=== PATIENT | female | born 1950 | race Caucasian/White ===

== ENCOUNTER → 2016-06-27 | Outpatient (CLI) | payer BC ==
[~2016-06-27] MED LIST: ACET650T59 PO; AMLO5TAB66 PO; BUPIVACAINE ONE; DICY10CA48 PO; DIPH25CA84 PO; ESTR42.58 VG; FOLI0.4T52 PO; IOHEXOL 180 MG/ML 20ml INJECTION ONE; LIDOCAINE 1% (10mg/ml) 30ml SDV ONE; LOSA25TA34 PO; MethylPREDNISolone ACETATE 80mg/1ml ONE; OMEP20CA10 PO; P-EP-570 PO; SODIUM BICARBONATE IV ONE; TRIA16.56 NS; [UNRECOGNIZED DRUG - CODE] PO; [UNRECOGNIZED DRUG - CODE] PO
--- NOTE | 2016-06-30 10:42 | PROCEDUREF ---
DATE OF PROCEDURE June 27, 2016 PROCEDURE Right hip joint cortisone injection under fluoroscopy. PREOPERATIVE DIAGNOSIS Right hip osteoarthritis. POSTOPERATIVE DIAGNOSIS Right hip osteoarthritis. DESCRIPTION OF PROCEDURE After consent was obtained, the patient was prepped in a sterile fashion in the quality control lab technician. She was draped using standard protocol. After being careful to avoid the femoral artery, I did use 9 mL of 1% lidocaine and 1 mL of sodium bicarbonate to achieve skin anesthesia using a spinal 25-gauge needle. I then used 0.5 mL of contrast to confirm placement in the hip joint. This was all done under fluoroscopy. After successful needle placement in the hip joint was confirmed, I left the needle in place and changed the syringe, injecting 5 mL of 0.25% Marcaine and 2 mL of Depo-Medrol 40 mg/mL. The needle was then withdrawn and there were no complications. Good hemostasis was achieved. The patient tolerated this procedure well. FOLLOWUP The patient is to call my office to follow up at my clinic in one week. She will call sooner if any fever, redness, increased pain or other concerns. SANTIAGO
== END ==
LOC: CATH.INJ 09:59
PROVIDERS: ATTEND Family Medicine Sports Medicine
DX: M16.11 Unilateral primary osteoarthritis, right hip (principal)
CPT/HCPCS: 20610; 77002; J1040; Q9965; Q9967; S0020

== ENCOUNTER 2016-09-25 06:47 | Inpatient (IN) ==
[~2016-09-25 06:47] MED LIST changes: -ACET650T59 PO; +ACETAMINOPHEN 500 MG TABLET PO ONE; -AMLO5TAB66 PO; -BUPIVACAINE ONE; -DICY10CA48 PO; -DIPH25CA84 PO; -ESTR42.58 VG; +FAMOTIDINE PB 20 MG/50 ML BAG IV ONE; -FOLI0.4T52 PO; -IOHEXOL 180 MG/ML 20ml INJECTION ONE; +LIDOCAINE 1% (10mg/ml) 10mL MDV SQ ONE; -LIDOCAINE 1% (10mg/ml) 30ml SDV ONE; -LOSA25TA34 PO; +METOCLOPRAMIDE 10mg/2ml INJECTION IVP ONE; -MethylPREDNISolone ACETATE 80mg/1ml ONE; +NOZIN NASAL SWAB NAS ONE; +NS IV ONE; -OMEP20CA10 PO; +ONDANSETRON 4 MG/2 ML INJECTION IVP ONE; -P-EP-570 PO; -SODIUM BICARBONATE IV ONE; +TRANEXAMIC ACID 1,000 MG in NS 100 ML IV ONE; -TRIA16.56 NS; +VANCOMYCIN 1,000 MG INJECTION ONE; +VANCOMYCIN IV ONE; -[UNRECOGNIZED DRUG - CODE] PO; -[UNRECOGNIZED DRUG - CODE] PO
[2016-09-25] MEDS ORDERED: TRANEXAMIC ACID 1,000 MG in NS 100 ML IV ONE (07:00)
[2016-09-25 07:07] VITALS: BMI 28.5
[2016-09-25] MEDS: LR 1,000 ML IV SCH ×3 (07:30→12:04)
[2016-09-25] MEDS ORDERED: LIDOCAINE 1% (10mg/ml) 2mL INJ PF SDV ID ONE (07:45)
[2016-09-25 07:49] LABS: Eosinophils # (Auto) 0.1 T/MM3 (0-0.5); Eosinophils % (Auto) 1.4 % (0-4); Hemoglobin 11.2 GM/DL (12-16); Immature Granulocyte % (Auto) 0.2 % (0.0-0.5); Lymphocytes # (Auto) 1.1 T/MM3 (1-4.8); Lymphocytes % (Auto) 21.5 % (23-45); Mean Corpuscular Hemoglobin 30.6 UUG (26-34); Mean Corpuscular Volume 92.9 UM3 (80-100); Mean Platelet Volume 9.1 UM3 (9.4-12.4); Monocytes % (Auto) 8.5 % (0-9.0); Platelet Count 404 T/MM3 (130-400); RDW Standard Deviation 41.5 FL (36.9-50.2); Red Blood Count 3.66 M/MM3 (4.00-5.20); White Blood Count 5.2 T/MM3 (4.5-11.0)
[2016-09-25] MEDS ORDERED: EPINEPHrine 0.25 MG, BUPIVACAINE 0.25% PF 30 ML, MORPHINE SULFATE 15 MG, KETOROLAC INJ ... OPSITE ONE (08:00)
--- NOTE | 2016-09-25 08:16 | Anesthesia Preoperative Report ---
Anesthesia Preoperative Record - Date and Time Date: 09/25/16 Preoperative Diagnosis: DJD right hip Proposed Procedure: right total hip NPO Since Date: 09/24/16 NPO Since Time: 23:00 Allergies/Adverse Reactions: Allergies Allergy/AdvReac Type Severity Reaction Status Date / Time Penicillins Allergy Severe Hives Verified 09/25/16 07:17 amoxicillin [From Augmentin] Allergy Unknown paralysis Verified 09/25/16 07:15 to arm, swelling clavulanic acid Allergy Unknown paralysis Verified 09/25/16 07:15 [From Augmentin] to arm, swelling hydrocodone AdvReac Unknown N/V Verified 09/25/16 07:15 ampicillin trihydrate Allergy Severe Hives Uncoded 09/25/16 07:17 Erythromycin Lactobionate Allergy Severe Bronchospas Uncoded 09/25/16 07:17 m Pneumococcal 23-Eugenia P-Sac Vac Allergy Severe paralysis Uncoded 09/25/16 07:17 to arm, swelling clindamycin HCl Allergy Unknown Bronchospas Uncoded 09/25/16 07:17 m Clindamycin Palmitate Allergy Unknown Bronchospas Uncoded 09/25/16 07:17 m clindamycin phosphate Allergy Unknown Bronchospas Uncoded 09/25/16 07:18 m - Vital Signs Vital Signs: Temperature 97.8 F 09/25/16 07:06 Pulse Rate 82 09/25/16 07:34 Respiratory Rate 15 09/25/16 07:06 Blood Pressure 143/80 H 09/25/16 07:06 Pulse Oximetry 93 09/25/16 07:06 Oxygen Delivery Method Room Air Height and Weight: Height 1.64 m Weight 76.5 kg Body Mass Index 28.5 - Medications Inpatient Medications: Current Medications Epinephrine HCl 0.25 mg/Bupivacaine HCl 30 ml/Morphine Sulfate 15 mg/Ketorolac Tromethamine 60 mg/Sodium Chloride 65.25 mls @ 1 mls/hr OPSITE INTRAOP ONE PRN Reason: Protocol Stop: 09/28/16 01:14 Vancomycin HCl 1,000 mg/ (Sodium Chloride) 250 mls @ 250 mls/hr IV PREOP ONE Stop: 09/25/16 08:59 Last Admin: 09/25/16 07:30 Dose: 250 mls/hr Sodium Chloride (Iv Flush) 10 - 80 ml IVF PRN PRN PRN Reason: Flushing Home Medications: Home Medications Medication Instructions Recorded Confirmed Type Acetaminophen [Tylenol Arthritis] 650 mg PO Q6HPRN PRN #0 11/02/09 09/25/16 History Cetirizine HCl/Pseudoephedrine 1 tab.sr PO BID #0 11/02/09 09/25/16 History [All Day Allergy-D Tablet] Omeprazole 20 mg PO HS #0 cap 10/29/14 09/25/16 History valacyclovir 500 mg tablet 500 mg PO HS tab 09/04/16 09/25/16 History Dicyclomine [Bentyl] 50 mg PO BID 09/08/16 09/25/16 History Glucosamine HCl/MSM [Glucosamine 30 ml PO DAILY 09/08/16 09/25/16 History MSM Liquid] amlodipine 5 mg tablet 5 mg PO DAILY 30 Days 09/08/16 09/25/16 History losartan 50 mg tablet 50 mg PO DAILY 30 Days 09/08/16 09/25/16 History Multiple Vitamins For Women 1 each PO DAILY 09/25/16 09/25/16 History Vitamin D3 8,000 mg PO DAILY 09/25/16 09/25/16 History - Medical History Respiratory: Reports: Asthma (last inhaler use 2 yrs ago ) Cardiovascular: Reports: Hypertension Neuro/Musculoskeletal: Reports: Other (fibromyalgia, generalized pain mostly in legs and feet ) - Surgical History HEENT Surgeries: Reports: Tonsillectomy Respiratory Surgery/Treatments: Reports: Other (GRINDS TEETH WEARS APPLIANCE) GI Surgery/Treatments: Reports: Colonoscopy (2014), Other (Hx colitis with bowel spasms) Reproductive Surgery/Treatment: Reports: Dilation and Curettage, Hysterectomy, Laparoscopy (x3-4 for fertility) Anesthesia Reactions: Nausea and Vomiting, Other (hard time waking up ) - Social History Smoking Status: Never smoker - Pertinent Findings Laboratory: CBC and BMP 09/25/16 07:26 EKG Rhythm: Normal Sinus Rhythm - Physical Exam Respiratory Exam: Present: lungs clear, bilateral breath sounds equal - Airway Assessment Mallampati Score: II TMD: 2 Fingerbreadths Neck Extension: fair Overall Assessment: may be difficult intubation - ASA ASA Score: 2 - Plan Anesthesia: General Inhalation Gases Regional/Trunk Block: Spinal - Discussion Discussion: Discussed risks/options/alternatives of anesthesia and questions answered. Patient consents. Nursing pain assessment noted. Attestation Statement: Prior to the delivery of any anesthetic medication, I examined the patient, developed the plan, obtained the patient's consent and discussed the risk and benefits of the procedure with the patient/guardian.
[2016-09-25] MEDS ORDERED: SCOPOLAMINE 1.5 MG PATCH TD ONE (08:21)
[2016-09-25] MEDS ORDERED: KETAMINE 500 MG/10 ML INJECTION ONE (08:28)
[2016-09-25] MEDS ORDERED: FentaNYL 100 MCG/2 ML INJECTION ONE (08:28)
[2016-09-25] MEDS ORDERED: PROPOFOL 20 ML ONE (08:29)
[2016-09-25] MEDS ORDERED: MIDAZOLAM 2mg/2ml INJECTION ONE (08:29)
[2016-09-25] MEDS ORDERED: SALINE FLUSH 10ml SYRINGE IVF PRN (08:39)
[2016-09-25] MEDS ORDERED: VANCOMYCIN 1,000 MG INJECTION IAR ONE (08:52)
[2016-09-25] MEDS ORDERED: LR 1,000 ML IV SCH (08:55)
[2016-09-25] MEDS ORDERED: VANCOMYCIN 1,000 MG in NS 500ml 500 ML IV ONE (09:52)
[2016-09-25] MEDS ORDERED: HYDROMORPHONE 2 MG/ML INJECTION IVP PRN (11:17)
--- NOTE | 2016-09-25 11:41 | Operative Note ---
- Procedure Date of Admission: 09/25/16 Side: right Preoperative Diagnosis: hip primary DJD Postoperative Diagnosis: Same as preoperative diagnosis. Operation: total hip arthroplasty (right) Surgeon: Rekha Ocampo MD Engineering Clerk: DARLYN Luna Complications: None. Regional/Trunk Block: Spinal Estimated Blood Loss: See Anesthesia Record. Fluids: Please see Anesthesia Record. Description of Procedure: Mrs. Orosco and her right hip were identified and marked in the preoperative holding area. She is brought back to the operating suite and spinal anesthetic was administered. She is then placed in a lateral decubitus position with the right side up. The right lower extremity was prepped and draped in my normal sterile fashion. Make robotic arm was used during the surgery. I placed a pelvic array using 3 guide pins through 3 poke holes into the iliac crest. A direct superior approach was then used to the hip. The piriformis tendon was detached and tagged. The checkpoint was placed into the greater trochanter. Capsulotomy was performed and the hip was dislocated. Femoral neck osteotomy was made at templated level. The acetabulum was exposed and labrum was removed. Checkpoint was placed above the acetabulum. The acetabulum was then registered. The robotic arm was used with 53 reamer and we reamed at a 43/25 position. After thorough irrigation the final 54 cup was placed again in a 43/25 position. A liner was then placed. The proximal femur was then prepared with a cookie cutter followed by broaching to a size 4. We trialed with a +2.5 head this felt good but a touch long. We then after thorough irrigation placed a final Accolade 2 size 4 head with 132 neck. We trialed 0 head and this gave excellent stability and leg length. After thorough irrigation a final ceramic 0 , 36 mm head was placed and final reduction performed. The array was removed Betadine solution was used into the wound and 4 fully irrigated out. Joint cocktail was injected into the soft tissue. The capsulotomy and piriformis tendon repaired with Ethibond. The muscle fascia was repaired with #1 Vicryl. The left my human resources office assistant to close the subcutaneous tissue and the skin with 2-0 Vicryl and Monocryl. A sterile dressing will be placed. She'll then be taken to the recovery room in the care of anesthesia.
--- NOTE | 2016-09-25 11:52 | History & Physical Update ---
- History and Physical Update Date: 09/25/16 Update: I evaluated this patient and found no changes in the history and clinical exam findings. The treatment plan and recommendations are also unchanged from the previous documentation.
--- NOTE | 2016-09-25 12:44 | XRay Report ---
Indication: postoperative image PROCEDURE: XR pelvis w/ 1 view RT hip: Encounter: Initial Comparison: Pelvis CT dated September 12, 2016 Findings: Postoperative changes of right total hip replacement are seen. There is expected postoperative subcutaneous gas. No evidence of hardware failure or acute fracture. No retained radiopaque surgical instruments or sponges seen. Moderate degenerative change in the left hip with osteophyte formation. Impression: New right total hip prosthesis without evidence of immediate complication. .
[2016-09-25] MEDS ORDERED: NOZIN NASAL SWAB NAS ONE (12:54)
[2016-09-25] MEDS ORDERED: DiphenhydrAMINE 50 MG/ML INJECTION IVP PRN (12:54)
[2016-09-25] MEDS ORDERED: ONDANSETRON 4 MG/2 ML INJECTION IVP PRN (12:54)
[2016-09-25] MEDS ORDERED: LORazepam 1 MG TABLET PO PRN (12:54)
[2016-09-25] MEDS ORDERED: DiphenhydrAMINE 25 MG CAPSULE PO PRN (12:54)
--- NOTE | 2016-09-25 13:01 | Anesthesia Postoperative Note ---
- Date and Time Date: 09/25/16 Time: 12:30 - Status Patient Participated in Evaluation: Patient Participated in Person Vital Signs: Temperature 97.2 F 09/25/16 11:54 Pulse Rate 64 09/25/16 12:45 Respiratory Rate 22 09/25/16 12:45 Blood Pressure 126/58 09/25/16 12:45 Pulse Oximetry 98 09/25/16 12:45 Oxygen Delivery Method Room Air Respiratory Function: Airway Patent Cardiovascular Function: Regular Pulse EKG Rhythm: Normal Sinus Rhythm Mental Status: Alert and Oriented Pain Intensity: 0 Hydration: IV Infusing Complications During Recover: None Apparent - Follow-Up Instructions Instructions: Per Surgeon
[2016-09-25] MEDS: NS 1,000 ML IV SCH (13:03)
[2016-09-25] MEDS: ACETAMINOPHEN 325 MG TABLET PO SCH ×3 (14:02→20:02)
[2016-09-25] MEDS: TRAMADOL 50 MG TABLET PO PRN ×3 (14:03→21:17)
[2016-09-25] MEDS: NOZIN NASAL SWAB NAS SCH ×2 (14:32→21:17)
[2016-09-25] MEDS: PSE PO SCH (20:03)
[2016-09-25] MEDS: LORATADINE PO SCH (20:03)
[2016-09-25] MEDS: DOCUSATE SODIUM 100 MG CAPSULE PO SCH (20:03)
[2016-09-25] MEDS: ASPIRIN *EC* 325 MG TABLET PO SCH (20:03)
[2016-09-25] MEDS ORDERED: NS IV ONE (20:30)
[2016-09-25] MEDS ORDERED: VANCOMYCIN IV ONE (20:30)
[2016-09-25] MEDS ORDERED: DICYCLOMINE 10mg CAPSULE PO PRN (21:00)
[2016-09-25] MEDS: SENNOSIDES 8.6 MG TABLET PO SCH (21:16)
[2016-09-25] MEDS: OMEPRAZOLE 20 MG CAPSULE PO SCH (21:17)
[2016-09-26] MEDS: NS 1,000 ML IV SCH (02:16)
[2016-09-26] MEDS: TRAMADOL 50 MG TABLET PO PRN ×2 (02:28→03:53)
[2016-09-26] MEDS: NOZIN NASAL SWAB NAS SCH ×4 (05:14→21:12)
[2016-09-26 05:36] LABS: Anion Gap 5 MEQ/L (5-15); BUN/Creatinine Ratio 19 RATIO (6-26); CO2 - Carbon Dioxide - NMC 29 MEQ/L (22-30); Calcium - NMC 8.7 MG/DL (8.4-10.2); Chloride - NMC 102 MEQ/L (98-107); Glomerular Filtration Rate 84; Glucose - NMC 86 MG/DL (65-110); NA - Sodium - NMC 136 MEQ/L (134-144); Osmolality,Calculated 261 MOSM/KG (261-280); Potassium 3.9 MEQ/L (3.6-5)
[2016-09-26 05:40] LABS: Hematocrit 30.1 % (36-46); Hemoglobin 9.6 GM/DL (12-16); Mean Corpuscular Hemoglobin 30.1 UUG (26-34); Mean Corpuscular Volume 94.4 UM3 (80-100); Mean Platelet Volume 9.4 UM3 (9.4-12.4); RDW Standard Deviation 41.3 FL (36.9-50.2); Red Blood Count 3.19 M/MM3 (4.00-5.20); White Blood Count 5.4 T/MM3 (4.5-11.0)
--- NOTE | 2016-09-26 08:31 | Orthopedic Progress Note ---
Date: Subjective/Severity of Illness: Alberta is feeling good. Her hip is not too painful. She has been up to the [facility] but has not worked with PT yet. C/O left foot and right knee pain. Thinks it is positional. She saw Dr Rodriguez for the knee pain before surgery. No CP, cough or SOA. She was not dizzy when we saw her this AM but did become dizzy after getting up. VS have remained stable. Hgb down slightly. Orthopedic Objective PO Vital signs: Temperature 98.4 F 09/26/16 08:00 Pulse Rate 81 09/26/16 08:00 Respiratory Rate 18 09/26/16 08:00 Blood Pressure 147/73 H 09/26/16 08:00 Pulse Oximetry 93 09/26/16 08:00 Oxygen Delivery Method Room Air Height and Weight: Height 5 ft 4.5 in Weight 178 lb 2.136 oz Body Mass Index 28.5 - Constitutional General Appearance: Present: alert, no acute distress - Respiratory Exam Present: non-labored - Cardiovascular Exam Present: pedal pulses intact - Extremities Exam Extremities: Present: pulses intact - Knee Exam Knee Exam: Present: stable to ligament exam (Right knee tested and stable. Tender along the med femroal condyle.) - Surgical Site Incision: Mepilex dressing intact, no drainage - Neurological Exam Present: no deficits - Psychiatric Exam Present: alert - Labs Result Diagrams: 09/26/16 04:18 09/26/16 04:18 Abnormal lab results 09/26/16 Range/Units 04:18 RBC 3.19 L (4.00-5.20) M/MM3 Hgb 9.6 L D (12-16) GM/DL Hct 30.1 L D (36-46) % H & H 09/25/16 09/26/16 Range/Units 07:26 04:18 Hgb 11.2 L 9.6 L D (12-16) GM/DL Hct 34.0 L 30.1 L D (36-46) % Orthopedic Assessment and Plan (1) Arthritis of hip Status: Acute Assessment and Plan: Her hgb was mid-11 range pre op and is lower this AM. Hgb drop is in an acceptable range for being po ERNIE. Will give some IV fluids and monitor for more dizziness. Work with PT / OT. SCDs and Aspirin for DVT coverage. CM for discharge planning. Hospital Course Summary Disclaimer: The visit summary below is not to be considered part of the above Progress Note.
[2016-09-26] MEDS: LORATADINE PO SCH ×2 (09:01→21:11)
[2016-09-26] MEDS: PSE PO SCH ×2 (09:01→21:11)
[2016-09-26] MEDS: ACETAMINOPHEN 325 MG TABLET PO SCH ×4 (09:02→21:11)
[2016-09-26] MEDS: ASPIRIN *EC* 325 MG TABLET PO SCH ×2 (09:02→21:12)
[2016-09-26] MEDS: DOCUSATE SODIUM 100 MG CAPSULE PO SCH ×2 (09:02→21:11)
[2016-09-26] MEDS: POLYETHYL GLYCOL 3350 17gm PACKET PO SCH (09:02)
[2016-09-26] MEDS ORDERED: SENNOSIDES 8.6 MG TABLET PO PRN (11:53)
[2016-09-26] MEDS ORDERED: TRAMADOL 50 MG TABLET PO PRN (12:34)
[2016-09-26] MEDS: OMEPRAZOLE 20 MG CAPSULE PO SCH (21:12)
[2016-09-26] MEDS: SENNOSIDES 8.6 MG TABLET PO SCH (21:12)
[2016-09-27 04:19] VITALS: RESP 16
[2016-09-27 05:04] LABS: Hematocrit 30.2 % (36-46); Hemoglobin 9.9 GM/DL (12-16); Mean Corpuscular Hemoglobin 30.4 UUG (26-34); Mean Corpuscular Volume 92.6 UM3 (80-100); Mean Platelet Volume 9.5 UM3 (9.4-12.4); RDW Standard Deviation 39.2 FL (36.9-50.2); Red Blood Count 3.26 M/MM3 (4.00-5.20); White Blood Count 6.7 T/MM3 (4.5-11.0)
[2016-09-27 05:15] LABS: Anion Gap 7 MEQ/L (5-15); BUN/Creatinine Ratio 14 RATIO (6-26); CO2 - Carbon Dioxide - NMC 28 MEQ/L (22-30); Chloride - NMC 99 MEQ/L (98-107); Glomerular Filtration Rate 72; Glucose - NMC 93 MG/DL (65-110); NA - Sodium - NMC 134 MEQ/L (134-144); Osmolality,Calculated 257 MOSM/KG (261-280); Potassium 3.4 MEQ/L (3.6-5)
[2016-09-27 07:19] VITALS: BP 152/69; PULSE 88; TEMP 98.8; O2SAT 98
[2016-09-27] MEDS: LORATADINE PO SCH (08:25)
[2016-09-27] MEDS: POLYETHYL GLYCOL 3350 17gm PACKET PO SCH (08:25)
[2016-09-27] MEDS: ACETAMINOPHEN 325 MG TABLET PO SCH (08:25)
[2016-09-27] MEDS: DOCUSATE SODIUM 100 MG CAPSULE PO SCH (08:25)
[2016-09-27] MEDS: PSE PO SCH (08:25)
[2016-09-27] MEDS: ASPIRIN *EC* 325 MG TABLET PO SCH (08:26)
[2016-09-27] MEDS: NOZIN NASAL SWAB NAS SCH (08:29)
--- NOTE | 2016-09-27 10:40 | Discharge Summary ---
Orthopedic Discharge Info Date of admission: 09/25/16 06:47 Anticipated date of discharge: 09/27/16 Primary care physician: Susanne Weller DO Attending Physician: Huber Ocampo MD Consults: 09/25/16 06:51 Consult to Anesthesiology [CONS] Routine Consulting Provider: DARLYN Jeffers Reason For Exam: Preoperative Assessment 09/25/16 12:54 Case Management Consult [CONS] Routine Reason For Exam: Discharge Planning DME-Walker [CONS] Routine Height: 5 ft 4.5 in Weight: 168 lb 10.458 oz Comment: change dressing in 2 weeks Total Joint Outpatient Therapy [CONS] Routine Comment: change dressing in 2 weeks - Discharge Diagnosis (1) Arthritis of hip Status: Acute - Procedures Procedures: Rt ERNIE - Laboratory Result Diagrams: 09/27/16 04:26 09/27/16 04:26 Laboratory: Abnormal lab results 09/27/16 09/27/16 Range/Units 04:26 04:26 RBC 3.26 L (4.00-5.20) M/MM3 Hgb 9.9 L (12-16) GM/DL Hct 30.2 L (36-46) % Potassium 3.4 L (3.6-5) MEQ/L Calculated Osmolality 257 L (261-280) MOSM/KG H & H 09/25/16 09/26/16 09/27/16 Range/Units 07:26 04:18 04:26 Hgb 11.2 L 9.6 L D 9.9 L (12-16) GM/DL Hct 34.0 L 30.1 L D 30.2 L (36-46) % Orthopedic Discharge HPI - HPI Comments This patient was admitted for elective surgical tx of end stage degenerative joint disease that failed to respond to conservative treatment. Further details of this is found in the admission H&P. Orthopedic Hospital Course Hospital course: 09/27/16 10:37 After appropriate preoperative clearance and signing of operative consent, the patient was given IV antibiotics, according to orthopedic protocol. The patient was taken to the operating room and underwent elective right robotic total hip arthroplasty. Following surgery, antibiotics were discontinued less than 24 hours according to joint protocol. Aspirin was initiated and SCDs added for DVT prevention. The dressing was clean, dry, and intact She had some mild erythema around the dressing but no signs of infections. Remained afebrile and WBC normal. . Pain control was obtained via multimodal approach. She had some sedation from Tramadol which delayed her discharge one day. Some dizziness early but improved with Scopolamine patch. Bowel motivation addressed with scheduled and PRN medications. Early mobilization was initiated through PT services. Discharge arrangements made by a collaborative effort between the patient and Case Management. Follow-up is scheduled in 2-3 weeks. Discharge instructions given by orthopedic providers and nursing staff at discharge. Discharge condition was good. Ongoing care required?: Yes Comments: Pt kept an extra day for dizziness and sedation effects of the pain meds. - Postoperative Anemia labs monitored daily, no intervention required, HGB drop-acceptable Discharge Plan - Med Rec/Dispo Referrals/Follow Up: Huber Ocampo MD [Physician] - 10/15/16 1:00 pm Sergeiuvjere Instructions: [facility] [place]op [place]ructions Additional Instructions: [facility] ON 10/01/2016 AT 8:45AM FOR PHYSICAL THERAPY EVAL. PLEASE COMPLETE THE PAPERWORK IN THE [facility] [place] [facility] PRIOR TO THE APPOINTMENT. PHONE [phone] Prescriptions: New Docusate Sodium [Colace] 100 mg PO BID capsule PEG 3350 17gm PACKET [Miralax] 17 gm PO DAILY packet Tramadol [Ultram] 50 mg PO Q6H PRN #40 tablet PRN Reason: Pain Acetaminophen [Tylenol] 650 mg PO QID tablet Aspirin *EC* [Ecotrin] 325 mg PO BID #90 tablet Continue Dicyclomine [Bentyl] 10 mg PO QID PRN PRN Reason: Prn Orders Vitamin D3 8,000 mg PO DAILY Multiple Vitamins For Women 1 each PO DAILY Cetirizine HCl/Pseudoephedrine [All Day Allergy-D Tablet] 1 tab.sr PO BID #0 Omeprazole 20 mg PO HS #0 cap Glucosamine HCl/MSM [Glucosamine MSM Liquid] 30 ml PO DAILY Discontinued Acetaminophen [Tylenol Arthritis] 650 mg PO Q6HPRN PRN #0 PRN Reason: Pain - Disposition 01 Discharged Home, Self-Care
--- NOTE | 2016-09-27 10:49 | Orthopedic Progress Note ---
Date: Subjective/Severity of Illness: Pt is doing better today. Less sedation and tolerated PT without problems. Dizziness improved with scopolamine patch. Pt is ready for discharge. Orthopedic Objective PO Vital signs: Temperature 98.8 F 09/27/16 07:18 Pulse Rate 88 09/27/16 07:18 Respiratory Rate 16 09/27/16 07:18 Blood Pressure 152/69 H 09/27/16 07:18 Pulse Oximetry 98 09/27/16 07:18 Oxygen Delivery Method Room Air Height and Weight: Height 5 ft 4.5 in Weight 178 lb 9.191 oz Body Mass Index 28.5 - Constitutional General Appearance: Present: alert, no acute distress - Respiratory Exam Present: non-labored - Cardiovascular Exam Present: pedal pulses intact - Extremities Exam Extremities: Present: pulses intact - Surgical Site Incision: erythema (Mild around the mepilex dressing. No warmth or drainage. Will monitor. Pt afebrile and WBC trending down.), Mepilex dressing intact, no drainage - Neurological Exam Present: no deficits - Psychiatric Exam Present: alert - Labs Result Diagrams: 09/27/16 04:26 09/27/16 04:26 Abnormal lab results 09/27/16 09/27/16 Range/Units 04:26 04:26 RBC 3.26 L (4.00-5.20) M/MM3 Hgb 9.9 L (12-16) GM/DL Hct 30.2 L (36-46) % Potassium 3.4 L (3.6-5) MEQ/L Calculated Osmolality 257 L (261-280) MOSM/KG H & H 09/25/16 09/26/16 09/27/16 Range/Units 07:26 04:18 04:26 Hgb 11.2 L 9.6 L D 9.9 L (12-16) GM/DL Hct 34.0 L 30.1 L D 30.2 L (36-46) % Orthopedic Assessment and Plan (1) Arthritis of hip Status: Acute Assessment and Plan: Current anti-coagulation protocol for VTE prophylaxis x 6 weeks. PT/OT services to improve independent function. Out pt therapy set up. Pt will monitor redness around dressing and report any changes / concerns. D/C scopolamine patch in 1-2 days. Discharge instructions reviewed with pt. Discharge Planning per Case Management. Hospital Course Summary Disclaimer: The visit summary below is not to be considered part of the above Progress Note.
[2016-09-27] MEDS ORDERED: BISACODYL 10 MG SUPPOSITORY RECTALLY SCH (20:00)
== END 2016-09-27 11:00 | disposition home or self-care (01) ==
LOC: SRG 06:47
PROVIDERS: ADMIT Orthopaedic Surgery; ATTEND Orthopaedic Surgery